=== PATIENT | female | born 1955 | race Caucasian/White ===

== ENCOUNTER 2022-03-11 08:00 | Outpatient (CLI) | payer MEDICARE ==
--- NOTE | 2022-03-11 15:40 | XRAY Report ---
PROCEDURE: Hip 2 View LT INDICATIONS: LEFT HIP PAIN TECHNIQUE: 2 views of the hip were acquired. COMPARISON: None FINDINGS: Bones: No fractures or dislocations. No suspicious bony lesions. The visualized pelvic ring appear s intact. Mild to moderate bilateral degenerative hip joint space narrowing. Soft tissues: No suspicious soft tissue calcifications or masses. 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 Reviewed by: Johanne Rodriguez MD on 03/11/2022 3:38 PM PST Approved by: Johanne Rodriguez MD on 03/11/2022 3:38 PM PST Station ID: [id number]
== END 2022-03-11 23:59 | disposition home or self-care (01) ==
LOC: DI.WOS 08:00
PROVIDERS: ATTEND Physician Assistant Surgical
DX: M16.0 Bilateral primary osteoarthritis of hip (principal)

== ENCOUNTER 2022-05-23 08:40 | Outpatient (CLI) | payer MEDICARE ==
--- NOTE | 2022-05-29 11:29 | Mammography Report ---
BILATERAL DIGITAL SCREENING MAMMOGRAM 3D/2D: 05/23/2022 CLINICAL: Routine screening. Comparison is made to exams dated: 05/22/2021 mammogram, 05/27/2019 mammogram, and 05/26/2018 mammogram - [facility]. Both breasts are heterogeneously dense, which may obscure small masses (category c / 51-75% glandular tissue). No significant masses, calcifications, or other findings are seen in either breast. There has been no significant interval change. IMPRESSION: NEGATIVE There is no mammographic evidence of malignancy. A 1 year screening mammogram is recommended. Based on the Tyrer Cuzick model (a risk assessment model) the patients lifetime risk is 13.5% and he r 10 year risk is 6.9%. According to the ACR, ACS, and NCCN guidelines, an annual breast MRI exam sharifa ng with mammogram is recommended if the patients lifetime risk is 20% or greater. This exam was interpreted at Station ID: [id number]. NOTE: For mammograms, a report in lay terms will be sent to the patient. Approximately 15% of breast malignancies will not be visualized mammographically. In the management of a palpable breast mass, a negative mammogram must not discourage biopsy of a clinically suspicious lesion. Electronically Signed By: Silvia brewster/kelsy:05/28/2022 14:26:39 ACR BI-RADS Category 1: Negative 3341F PARENCHYMAL PATTERN: (D) - The breast(s) demonstrate(s) heterogeneously dense fibroglandular mumtaz shi. BI-RADS CATEGORY: (1) - 1 RECOMMENDATION: (ANNUAL) - Recommend routine annual screening mammography. [id number] 1 year screening LATERALITY: (B)
== END 2022-05-23 08:41 | disposition home or self-care (01) ==
LOC: DI 08:40
PROVIDERS: ATTEND Internal Medicine
DX: Z12.31 Encounter for screening mammogram for malignant neoplasm of breast (principal)

== ENCOUNTER 2022-05-25 08:59 | Outpatient (CLI) | payer MEDICARE ==
--- NOTE | 2022-05-27 09:38 | MRI Report ---
PROCEDURE: LUMBAR SPINE WO INDICATIONS: LUMBAR SPONDYLOSIS TECHNIQUE: Noncontrast sagittal T1 spin echo and T2 fast echo, sagittal STIR, axial T1 and T2 fast spin echo thr ough the lumbar spine. In cases with scoliosis, additional coronal T2 fast spin echo may be performe d. COMPARISON: None. FINDINGS: Image quality: Excellent. Alignment and Curvature: There is normal bony alignment. In the absence of plain films or compariso n it is assumed that there are 5 nonrib-bearing lumbar vertebral bodies, and that axial imaging was o btained from T12-L1 through L5/S1. Bone Marrow: Marrow is of normal overall signal. No acute vertebral body compression fractures. Spinal Cord: Conus medullaris terminates at the L1-L2 level. Visualized cord demonstrates normal si gnal and size. Paraspinous Soft Tissues: No paravertebral masses. There is a right paracentral disc protrusion at T11-T12, which is not imaged in axial plane. T12-L1: No canal stenosis or foraminal stenosis. L1-L2: Facet hypertrophy. Minimal disc bulge. No canal stenosis or foraminal stenosis. L2-L3: Minimal disc bulge. Facet hypertrophy. No canal stenosis or foraminal stenosis. L3-L4: Minimal disc bulge. Facet hypertrophy. Mild to moderate canal stenosis. No foraminal stenosi s. L4-L5: Disc bulge. Facet hypertrophy. Mild canal stenosis. No foraminal stenosis. L5-S1: Facet hypertrophy. No canal stenosis or foraminal stenosis. IMPRESSION: 1. Numbering assumes 5 nonrib-bearing lumbar vertebral bodies. If surgery is considered, careful cherelle elation for correct surgical level is recommended. 2. A T11-T12 right paracentral disc protrusion is incidentally noted. 3. Multilevel facet arthropathy. 4. Canal stenosis is mild to moderate at L3-L4 and mild at L4-L5. Reviewed by: Chris Olivraez MD on 05/27/2022 9:37 AM PST Approved by: Chris Olivarez MD on 05/27/2022 9:37 AM PST Station ID: [id number]
== END 2022-05-25 09:00 | disposition home or self-care (01) ==
LOC: DI 08:59
PROVIDERS: ATTEND Anesthesiology
DX: M51.36 Other intervertebral disc degeneration, lumbar region (principal); M48.061 Spinal stenosis, lumbar region without neurogenic claudication; M47.816 Spondylosis without myelopathy or radiculopathy, lumbar region; M47.817 Spondylosis without myelopathy or radiculopathy, lumbosacral region